=== PATIENT | male | born 1975 | race Caucasian/White ===

== ENCOUNTER 2018-11-15 12:37 | Inpatient (IN) | payer OTHER ==
[~2018-11-15] VITALS: Ht 180.3 cm; Wt 110.7 kg
[2018-11-15 15:00] VITALS: BP 118/76
[2018-11-15] MEDS ORDERED: OMEP20CA10 PO (16:47)
[2018-11-15] MEDS ORDERED: ATOR40TA59 PO (16:47)
[2018-11-15] MEDS ORDERED: CLIN150C14 PO (16:47)
[2018-11-15] MEDS ORDERED: SULF1TAB24 PO (16:47)
[2018-11-15] MEDS ORDERED: KETO10TA PO (16:47)
[2018-11-15] MEDS ORDERED: METF10007 PO (16:47)
[2018-11-15] MEDS ORDERED: LISI-130 PO (16:47)
[2018-11-15 16:58] LABS: BASO # 0.1 x10^3/uL (0.0-0.2); BASO % 1 % (0-3); EOS # 0.1 x10^3/uL (0.0-0.7); EOS % 1 % (0-3); HEMATOCRIT 37.4 % (39.0-53.0); HEMOGLOBIN 12.7 g/dL (13.0-17.5); LYMPH # 1.5 x10^3/uL (1.0-4.8); LYMPH % 21 % (24-48); MEAN CORPUSCULAR HEMOGLOBIN 29 pg (25-35); MEAN CORPUSCULAR HGB CONC 34 g/dL (31-37); MEAN CORPUSCULAR VOLUME 84 fL (79-100); MONO # 0.6 x10^3/uL (0.0-1.1); MONO % 9 % (0-9); NEUT # 4.8 x10^3uL (1.8-7.7); NEUT % 68 % (31-73); PLATELET COUNT 192 x10^3/uL (140-400); RED BLOOD COUNT 4.45 x10^6/uL (4.30-5.70); RED CELL DISTRIBUTION WIDTH 14.1 % (11.5-14.5)
[2018-11-15] MEDS ORDERED: VANCOMYCIN 2 GM in IV NORMAL SALINE 500ML BAG 500 ML IV ONE (17:30)
[2018-11-15] MEDS: PIPERACILLIN/TAZOBACTAM 3.375 GM in IV NORMAL SALINE 50ML 50 ML IV SCH ×2 (18:30→23:02)
[2018-11-15] MEDS: IV NORMAL SALINE 1000ML BAG 1,000 ML IV SCH (18:30)
[2018-11-15] MEDS ORDERED: SEMA0.25 SQ (18:51)
[2018-11-15] MEDS ORDERED: DAPA10TA PO (18:51)
[2018-11-15 19:35] VITALS: BP 98/65
[2018-11-15 19:40] LABS: ALBUMIN 3.4 g/dL (3.4-5.0); ALBUMIN/GLOBULIN RATIO 0.9 (1.0-1.7); C-REACTIVE PROTEIN 35.6 mg/L (0-3.3); CALCIUM 9.5 mg/dL (8.5-10.1); CREATININE 1.3 mg/dL (0.7-1.3); GFR 60.2; POTASSIUM 4.8 mmol/L (3.5-5.1); TOTAL BILIRUBIN 0.2 mg/dL (0.2-1.0); TOTAL PROTEIN 7.3 g/dL (6.4-8.2)
[2018-11-15] MEDS: VANCOMYCIN PER PHARMACY MC PRN (19:48)
--- NOTE | 2018-11-15 19:49 | NUR ---
Pharmacy Vancomycin Dosing Note S:Consulted to monitor and dose vancomycin started 11/15/18. O:SHASTA NAVARRO is a 43 year old M with Cellulitis . Height: 5 feet, 11 inches Weight: 111.534943 kg [place] Body Weight: 75.30 Adjusted Body Weight: 89.58 Dosing Weight: Actual Other Antibiotics: ZOSYN LABS: Last BUN: 22 Last Creatinine: 1.3 Creatinine Clearance: 93 mL/min Last WBC: 7.0 Last Procalcitonin: Tmax (past 24 hours): 97.8 Microbiology: I/O: Drug Levels: Last level: on at Last dose given at Vancomycin Dosing: Loading Dose: 2000 mg x1 Dosing Weight: Actual Target Trough: 10-20 A: Based on: WEIGHT AND RENAL FUNCTION, 2GM VANCOMYCIN IV BOLUS GIVEN, P: 1. Begin Vancomycin 1750 mg IV q12h 11/16 2. Follow up Trough level on 11/17/18 at 0630 3. Pharmacy will continue to monitor, follow and adjust therapy as needed. WILLIE LIZAMA [facility], 11/15/18 1949
[2018-11-15] MEDS: LACTOBACILLUS RHAMNOSUS GG 1 CAPSULE. PO SCH (20:09)
[2018-11-15 23:09] VITALS: BP 108/69
[2018-11-16 03:40] VITALS: BP 91/54
[2018-11-16] MEDS: IV NORMAL SALINE 1000ML BAG 1,000 ML IV SCH (05:05)
[2018-11-16] MEDS: PIPERACILLIN/TAZOBACTAM 3.375 GM in IV NORMAL SALINE 50ML 50 ML IV SCH ×4 (05:23→23:55)
[2018-11-16] MEDS: VANCOMYCIN 1.75 GM in IV NORMAL SALINE 500ML BAG 500 ML IV SCH ×2 (06:11→18:40)
[2018-11-16 07:00] VITALS: BP 117/70
--- NOTE | 2018-11-16 08:59 | PDOC ---
Provider Note Provider Note [id number] STEVE VALDERRAMA MD Nov 16, 2018 08:58
[2018-11-16] MEDS: NON FORMULARY ITEM (Dapagliflozin Propanediol (Farxiga) 10 MG) PO SCH (09:00)
[2018-11-16] MEDS: LACTOBACILLUS RHAMNOSUS GG 1 CAPSULE. PO SCH ×2 (09:16→19:20)
[2018-11-16] MEDS: metFORMIN 500 MG TABLET PO SCH ×2 (09:16→17:39)
[2018-11-16] MEDS: PANTOPRAZOLE 40 MG TABLET.DR. PO SCH (09:16)
--- NOTE | 2018-11-16 09:47 | HP ---
ADMIT DATE: 11/15/2018 CHIEF COMPLAINT: Infected foot. HISTORY OF PRESENT ILLNESS: A 43-year-old white male was seen in the office by Dr. Gamez on the day of admission with progressively worsening infection of the right foot. This began about 3 weeks prior to admission, when he peeled off some skin off his right toe that caused bleeding and subsequently some infection. He took a week of Bactrim, ending about 2 weeks ago and was clinically better. He went to [place] and about 5 days ago, he developed fever, nausea, vomiting and increasing severe pain in the right great toe. Cultures were done at the ER in [facility], results pending of those and he was given IV medications of unknown type and then prescription for Bactrim and clindamycin. He did not fill those prescriptions for about 24 hours and then started them 2 days prior to admission, without much improvement. His toe feels better since he has been on clindamycin and Zosyn here in the hospital. He has had no further fever, chills, nausea or vomiting. His last A1c was about 6 weeks ago and was 9.[address] Gamez added Ozempic, which he feels like he has been responding to so far. MEDICATIONS: Include lisinopril, omeprazole and Lipitor. ALLERGIES: He has no allergies known. IMMUNIZATIONS: Tetanus status, uncertain. SOCIAL HISTORY: Nonsmoker, nondrinker, physically active, single. FAMILY HISTORY: Unremarkable. REVIEW OF SYSTEMS: No other known complaints. PHYSICAL EXAMINATION: ENT: All within normal limits. NECK: No masses, nodes or bruits. LUNGS: Clear. CARDIOVASCULAR: Regular rate. No murmur, tachycardia. ABDOMEN: Soft, benign and nontender. EXTREMITIES: He has excellent pedal and radial pulses in both feet. The dorsal distal right foot has inflammation, tenderness and mild maceration between the great toe and toes 2 and 3. There is no streaking or lymphadenopathy noted. The right great toe is peeling, but looks clinically better and there are no open draining wounds. The ankle is normal. NEUROLOGIC: Physiologic. No obvious neuropathy noted. ASSESSMENT: Progressive cellulitis of the right dorsal foot, despite clindamycin and Bactrim as an outpatient. Bacteriologic etiology not known yet. Suspect methicillin-resistant Staphylococcus aureus and most likely possibly some gram negatives. Diabetes is not ideally controlled, but the addition of Ozempic has helped him. Good neurovascular status. PLAN: Continue vancomycin and Zosyn, pending results of outpatient culture. X-ray of the toe to look at the great toe primarily, but does not appear to show evidence of osteomyelitis at this time. STEVE VALDERRAMA MD DR: MIKHAIL/landy JOB#: [id number] / [id number]
[2018-11-16 11:00] VITALS: BP 114/71
--- NOTE | 2018-11-16 11:38 | PDOC ---
Infectious Disease Note Vital Sign Vital Signs Vital Signs Date Time Temp Pulse Resp B/P (MAP) Pulse Ox O2 Delivery O2 Flow Rate FiO2 11/16/18 11:00 98.4 88 16 114/71 (85) 98 Room Air 98.4 Labs Lab Laboratory Tests Test 11/15/18 16:40 11/15/18 17:01 11/15/18 20:16 11/16/18 07:45 White Blood Count 7.0 x10^3/uL (4.0-11.0) Red Blood Count 4.45 x10^6/uL (4.30-5.70) Hemoglobin 12.7 g/dL (13.0-17.5) Hematocrit 37.4 % (39.0-53.0) Mean Corpuscular Volume 84 fL (79-100) Mean Corpuscular Hemoglobin 29 pg (25-35) Mean Corpuscular Hemoglobin Concent 34 g/dL (31-37) Red Cell Distribution Width 14.1 % (11.5-14.5) Platelet Count 192 x10^3/uL (140-400) Neutrophils (%) (Auto) 68 % (31-73) Lymphocytes (%) (Auto) 21 % (24-48) Monocytes (%) (Auto) 9 % (0-9) Eosinophils (%) (Auto) 1 % (0-3) Basophils (%) (Auto) 1 % (0-3) Neutrophils # (Auto) 4.8 x10^3uL (1.8-7.7) Lymphocytes # (Auto) 1.5 x10^3/uL (1.0-4.8) Monocytes # (Auto) 0.6 x10^3/uL (0.0-1.1) Eosinophils # (Auto) 0.1 x10^3/uL (0.0-0.7) Basophils # (Auto) 0.1 x10^3/uL (0.0-0.2) Erythrocyte Sedimentation Rate 60 (0-15) Sodium Level 138 mmol/L (136-145) Potassium Level 4.8 mmol/L (3.5-5.1) Chloride Level 101 mmol/L (98-107) Carbon Dioxide Level 23 mmol/L (21-32) Anion Gap 14 (6-14) Blood Urea Nitrogen 22 mg/dL (8-26) Creatinine 1.3 mg/dL (0.7-1.3) Estimated GFR (Cockcroft-Gault) 60.2 BUN/Creatinine Ratio 17 (6-20) Glucose Level 233 mg/dL (70-99) Calcium Level 9.5 mg/dL (8.5-10.1) Total Bilirubin 0.2 mg/dL (0.2-1.0) Aspartate Amino Transf (AST/SGOT) 33 U/L (15-37) Alanine Aminotransferase (ALT/SGPT) 44 U/L (16-63) Alkaline Phosphatase 70 U/L (46-116) C-Reactive Protein, Quantitative 35.6 mg/L (0-3.3) Total Protein 7.3 g/dL (6.4-8.2) Albumin 3.4 g/dL (3.4-5.0) Albumin/Globulin Ratio 0.9 (1.0-1.7) Glucose (Fingerstick) 209 mg/dL (70-99) 146 mg/dL (70-99) 134 mg/dL (70-99) Objective Assessment Rt foot cellulitis Rt big toe callous DM HLD Plan Plan of Care agree with vern and tico supportive care check culture results EDMAR LOREDO MD Nov 16, 2018 11:38
--- NOTE | 2018-11-16 12:06 | RAD ---
EXAM: Right foot, 3 views. HISTORY: Right great toe infection. COMPARISON: None. FINDINGS: 3 views of the right foot are obtained. There is no acute fracture, dislocation or subluxation. There is no radiographic evidence of osteomyelitis. No soft tissue foreign body is seen. IMPRESSION: No acute osseous finding. Electronically signed by: Bianca Maddox MD (11/16/2018 12:03 PM) [facility]
[2018-11-16 12:40] LABS: CREATININE 1.1 mg/dL (0.7-1.3); GFR 73.1
--- NOTE | 2018-11-16 14:22 | NUR ---
Wound Care: Consult to eval and treat for R great toe DFU and cellulitis. Consents obtained to perform bedside debridement of callus. Callus removed and wound pictured and measured per protocol (see detailed assessment). Cleansed and applied Epiona to wound bed, covered with corn pad, contact layer and telfa. Plan to follow up 11/24. Communicated wound care orders with Man BUTLER. Dr. Sharma recommending Half shoe from [employer] Addendum: 11/16/18 at 1557 by LYLY DOBBINS RN RLE ZAHRAA: 1.14
[2018-11-16 15:00] VITALS: BP 105/57
--- NOTE | 2018-11-16 15:11 | PDOC2 ---
CONSULT Date of Consult Date of Consult DATE: 11/16/18 TIME: 15:07 Reason for Consult Reason for Consult: Right foot infection Referring Physician Referring Physician: Dr. Chiu Identification/Chief Complaint Chief Complaint Worsening right foot cellulitis and diabetic patient Source Source: Chart review, Patient History of Present Illness Reason for Visit: This is a 43-year-old patient recently admitted to the hospital for worsening diabetic ulcer to the right forefoot. Duration of the ulceration appears to have been roughly 1 week. He demonstrated initial good response to oral antibiotics but most recent increased redness and swelling was not responsive to dual oral antibiotic therapy. He was subsequently admitted for aggressive IV antibiotic therapy. Patient does not report significant history of diabetic ulcerations in the past. He does not wear any type of special or custom diabetic shoe wear. He wears shoes without socks for the most part. He is aware of some decreased sensation in bilateral lower extremities. At this time he reports much improved redness and swelling. Past Medical History Cardiovascular: HTN Endocrine: Diabetes Social History No ALCOHOL: rare Drugs: None Domestic Violence: Neg Current Medications Current Medications Current Medications Vancomycin HCl (Vanco Per Pharmacy) 1 each PRN DAILY PRN MC SEE COMMENTS Last administered on 11/15/18at 19:48; Start 11/15/18 at 15:45 Piperacillin Sod/ Tazobactam Sod 3.375 gm/Sodium Chloride 50 ml @ 100 mls/hr Q6HRS IV Last administered on 11/16/18at 12:20; Start 11/15/18 at 16:00 Sodium Chloride 1,000 ml @ 75 mls/hr [id number] IV Last administered on at 18:30; Start 11/15/18 at 15:45; Stop 11/16/18 at 09:02; Status DC Lactobacillus Rhamnosus (Culturelle) 1 cap BID PO Last administered on at 09:16; Start 11/15/18 at 21:00 Vancomycin HCl 2 gm/Sodium Chloride 500 ml @ 250 mls/hr 1X ONCE IV Last administered on 11/15/18at 19:10; Start 11/15/18 at 17:30; Stop 11/15/18 at 19:29 ; Status DC Vancomycin HCl 1.75 gm/Sodium Chloride 500 ml @ 250 mls/hr Q12H IV Last administered on 11/16/18at 06:11; Start 11/16/18 at 07:00 Vancomycin HCl (Vancomycin Trough Level) 1 each 1X ONCE MC ; Start 11/17/18 at 06:30; Stop 11/17/18 at 06:31 Atorvastatin Calcium (Lipitor) 40 mg QHS PO ; Start 11/16/18 at 21:00 Non-Formulary Medication (Dapagliflozin Propanediol (Farxiga)) 10 mg DAILY PO ; Start 11/16/18 at 09:00; Status UNV Metformin HCl (Glucophage) 1,000 mg BIDWMEALS PO Last administered on at 09:16; Start 11/16/18 at 09:00 Pantoprazole Sodium (Protonix) 40 mg DAILYAC PO Last administered on 11/16/18at 09:16; Start 11/16/18 at 11:30 Active Scripts Active Reported Farxiga (Dapagliflozin Propanediol) 10 Mg Tablet 10 Mg PO DAILY Ozempic (Semaglutide) 0.25 Mg/0.2 Ml Pen.injctr Unknown Dose SQ WEEKLY Lisinopril 40 Mg Tablet 1 Tab PO DAILY Atorvastatin Calcium 40 Mg Tablet 1 Tab PO DAILY Omeprazole 20 Mg Capsule.dr 1 Cap PO DAILY Metformin Hcl 1,000 Mg Tablet 1,000 Mg PO BIDWMEALS Clindamycin Hcl 150 Mg Capsule 3 Cap PO TID Bactrim Ds Tablet (Sulfamethoxazole/Trimethoprim) 1 Each Tablet 1 Tab PO BID Ketorolac Tromethamine 10 Mg Tablet 1 Tab PO TID PRN Allergies Allergies: Coded Allergies: No Known Drug Allergies (Unverified , 07/30/14) ROS Review of System Negative except as reported below Physical Exam General: Alert, Oriented X3, Cooperative, No acute distress HEENT: Atraumatic, PERRLA, EOMI, Mucous membr. moist/pink Lungs: Clear to auscultation, Normal air movement Heart: Regular rate, No murmurs, Other (Quant of flow on the right was 1.14) Abdomen: Soft, No tenderness Extremities: No clubbing, No cyanosis, No edema, Normal pulses Skin: Other (diabetic Cavazos 1 ulceration of the right great toe with evidence of fat exposure measuring 0.3 cm x 0.4 cm x 0.2 cm. There is swelling and modest induration at the first interdigital space dorsal aspect of the right forefoot as well. The plantar surface ulcer does not probe to bone or a worrisome depth at this time. Significant swelling in the great toe is not particularly prominent.) Neuro: Normal speech, Cranial nerves 3-12 NL Psych/Mental Status: Mental status NL, Mood NL MUSCULOSKELETAL: Not examined Vitals VITALS Vital Signs Date Time Temp Pulse Resp B/P (MAP) Pulse Ox O2 Delivery O2 Flow Rate FiO2 11/16/18 11:00 98.4 88 16 114/71 (85) 98 Room Air 98.4 Labs Labs Elevated sedimentation rate noted Laboratory Tests Test 11/15/18 16:40 11/15/18 17:01 11/15/18 20:16 11/16/18 07:45 White Blood Count 7.0 x10^3/uL (4.0-11.0) Red Blood Count 4.45 x10^6/uL (4.30-5.70) Hemoglobin 12.7 g/dL (13.0-17.5) Hematocrit 37.4 % (39.0-53.0) Mean Corpuscular Volume 84 fL (79-100) Mean Corpuscular Hemoglobin 29 pg (25-35) Mean Corpuscular Hemoglobin Concent 34 g/dL (31-37) Red Cell Distribution Width 14.1 % (11.5-14.5) Platelet Count 192 x10^3/uL (140-400) Neutrophils (%) (Auto) 68 % (31-73) Lymphocytes (%) (Auto) 21 % (24-48) Monocytes (%) (Auto) 9 % (0-9) Eosinophils (%) (Auto) 1 % (0-3) Basophils (%) (Auto) 1 % (0-3) Neutrophils # (Auto) 4.8 x10^3uL (1.8-7.7) Lymphocytes # (Auto) 1.5 x10^3/uL (1.0-4.8) Monocytes # (Auto) 0.6 x10^3/uL (0.0-1.1) Eosinophils # (Auto) 0.1 x10^3/uL (0.0-0.7) Basophils # (Auto) 0.1 x10^3/uL (0.0-0.2) Erythrocyte Sedimentation Rate 60 (0-15) Sodium Level 138 mmol/L (136-145) Potassium Level 4.8 mmol/L (3.5-5.1) Chloride Level 101 mmol/L (98-107) Carbon Dioxide Level 23 mmol/L (21-32) Anion Gap 14 (6-14) Blood Urea Nitrogen 22 mg/dL (8-26) Creatinine 1.3 mg/dL (0.7-1.3) Estimated GFR (Cockcroft-Gault) 60.2 BUN/Creatinine Ratio 17 (6-20) Glucose Level 233 mg/dL (70-99) Calcium Level 9.5 mg/dL (8.5-10.1) Total Bilirubin 0.2 mg/dL (0.2-1.0) Aspartate Amino Transf (AST/SGOT) 33 U/L (15-37) Alanine Aminotransferase (ALT/SGPT) 44 U/L (16-63) Alkaline Phosphatase 70 U/L (46-116) C-Reactive Protein, Quantitative 35.6 mg/L (0-3.3) Total Protein 7.3 g/dL (6.4-8.2) Albumin 3.4 g/dL (3.4-5.0) Albumin/Globulin Ratio 0.9 (1.0-1.7) Glucose (Fingerstick) 209 mg/dL (70-99) 146 mg/dL (70-99) 134 mg/dL (70-99) Test 11/16/18 11:53 11/16/18 12:00 Glucose (Fingerstick) 144 mg/dL (70-99) Creatinine 1.1 mg/dL (0.7-1.3) Estimated GFR (Cockcroft-Gault) 73.1 Laboratory Tests Test 11/15/18 16:40 11/15/18 17:01 11/15/18 20:16 11/16/18 07:45 White Blood Count 7.0 x10^3/uL (4.0-11.0) Red Blood Count 4.45 x10^6/uL (4.30-5.70) Hemoglobin 12.7 g/dL (13.0-17.5) Hematocrit 37.4 % (39.0-53.0) Mean Corpuscular Volume 84 fL (79-100) Mean Corpuscular Hemoglobin 29 pg (25-35) Mean Corpuscular Hemoglobin Concent 34 g/dL (31-37) Red Cell Distribution Width 14.1 % (11.5-14.5) Platelet Count 192 x10^3/uL (140-400) Neutrophils (%) (Auto) 68 % (31-73) Lymphocytes (%) (Auto) 21 % (24-48) Monocytes (%) (Auto) 9 % (0-9) Eosinophils (%) (Auto) 1 % (0-3) Basophils (%) (Auto) 1 % (0-3) Neutrophils # (Auto) 4.8 x10^3uL (1.8-7.7) Lymphocytes # (Auto) 1.5 x10^3/uL (1.0-4.8) Monocytes # (Auto) 0.6 x10^3/uL (0.0-1.1) Eosinophils # (Auto) 0.1 x10^3/uL (0.0-0.7) Basophils # (Auto) 0.1 x10^3/uL (0.0-0.2) Erythrocyte Sedimentation Rate 60 (0-15) Sodium Level 138 mmol/L (136-145) Potassium Level 4.8 mmol/L (3.5-5.1) Chloride Level 101 mmol/L (98-107) Carbon Dioxide Level 23 mmol/L (21-32) Anion Gap 14 (6-14) Blood Urea Nitrogen 22 mg/dL (8-26) Creatinine 1.3 mg/dL (0.7-1.3) Estimated GFR (Cockcroft-Gault) 60.2 BUN/Creatinine Ratio 17 (6-20) Glucose Level 233 mg/dL (70-99) Calcium Level 9.5 mg/dL (8.5-10.1) Total Bilirubin 0.2 mg/dL (0.2-1.0) Aspartate Amino Transf (AST/SGOT) 33 U/L (15-37) Alanine Aminotransferase (ALT/SGPT) 44 U/L (16-63) Alkaline Phosphatase 70 U/L (46-116) C-Reactive Protein, Quantitative 35.6 mg/L (0-3.3) Total Protein 7.3 g/dL (6.4-8.2) Albumin 3.4 g/dL (3.4-5.0) Albumin/Globulin Ratio 0.9 (1.0-1.7) Glucose (Fingerstick) 209 mg/dL (70-99) 146 mg/dL (70-99) 134 mg/dL (70-99) Test 11/16/18 11:53 11/16/18 12:00 Glucose (Fingerstick) 144 mg/dL (70-99) Creatinine 1.1 mg/dL (0.7-1.3) Estimated GFR (Cockcroft-Gault) 73.1 Images Images Plain film x-ray unremarkable for bony involvement Assessment/Plan Assessment/Plan Diabetic Cavazos 1 ulceration of the right forefoot with evidence of fat layer exposure and prominent distal extremity cellulitis Doubt vascular involvement. Orders written for appropriate dressings. Infectious disease managing cellulitic component. We discussed offloading and follow-up if agreeable to primary care. Anticipate offloading will be critical and resolution of this ulcer. He was provided felt and we will anticipate placement in a half shoe. Thank you for allowing us to participate in your patient's care EDILBERTO BULLOCK DO Nov 16, 2018 15:11
[2018-11-16] MEDS: VANCOMYCIN PER PHARMACY MC PRN (15:56)
[2018-11-16] MEDS: ACETAMINOPHEN 325 MG TABLET. PO PRN (19:20)
[2018-11-16] MEDS: ATORVASTATIN CALCIUM 40 MG TABLET. PO SCH (19:20)
[2018-11-16 19:51] VITALS: BP 117/71
[2018-11-16 23:40] VITALS: BP 91/60
[2018-11-17 00:26] VITALS: BP 91/60
--- NOTE | 2018-11-17 00:36 | CONS ---
DATE OF CONSULTATION: 11/16/2018 REQUESTING PHYSICIAN: Dr. Chiu REASON FOR CONSULTATION: Diabetic foot infection. HISTORY OF PRESENT ILLNESS: This is a 43-year-old gentleman with a history of diabetes with last hemoglobin A1c around 9. The patient had developed about 3 weeks or so ago, there was a callus on the big toe, which was peeled off of the skin and subsequently developed infection. The patient was given Bactrim and he said it actually improved first time and subsequently he went for a business trip to [place] where he got worse. The patient was seen in the ER there. The patient was put back on Bactrim and clindamycin and he was not getting better, hence he is admitted for further management. The patient has been started on vancomycin and Zosyn and already is looking better, he says, compared to yesterday. The patient denies any fever, denies any chills. Denies any nausea, vomiting, diarrhea now. Denies any chest pain, shortness of breath, abdominal pain, urinary symptoms or bowel symptoms. PAST MEDICAL HISTORY: Positive for diabetes mellitus, hyperlipidemia, gastroesophageal reflux disease, has had knee reconstructive surgery done in the past. SOCIAL HISTORY: Negative for smoking, alcohol use or drug use. ALLERGIES: No known drug allergies. CURRENT MEDICATIONS: Reviewed. The patient is on vancomycin and Zosyn. REVIEW OF SYSTEMS: As per HPI, all other systems reviewed and are negative. PHYSICAL EXAMINATION: GENERAL: Alert, oriented gentleman, not in distress. VITAL SIGNS: Stable, afebrile. HEENT: NAD. NECK: Supple, no JVP, no lymphadenopathy. LUNGS: Clear. HEART: S1, S2 regular. ABDOMEN: Benign. EXTREMITIES: No edema or cyanosis. SKIN: Unremarkable except right foot. The patient does have a dry flaky skin on the right big toe callus. On the plantar surface, there is redness of the toe as well as spreading on to the foot with a slight blistering at the base of the first and second toe. There is no other deep skin breakdown. There is no other area of concern. He does have good dorsalis pedis palpable. NEUROLOGICAL: The patient is neurologically intact, alert, awake and appropriate. No focal neurologic deficit. LABORATORY DATA: White count is 7000, hemoglobin 12.7, platelets are normal. Sed rate is 60. BUN and creatinine are normal. His foot x-ray report is pending. My view is unremarkable. IMPRESSION: 1. Diabetic foot infection, probably started from the callus and the skin peel that he took it out, may have ill-fitting shoes causing the disproportionate amount of callus into the right big toe. 2. Diabetes. 3. Hyperlipidemia. RECOMMENDATIONS: Recommend continue vancomycin and Zosyn for the time being, will obtain the culture that was done in [facility] and soon to be able to switch over to oral for possible discharge. Blood sugar control discussed and the possible ill-fitting shoes discussed. Thank you very much, Dr. Chiu, for giving me the opportunity to participate in this patient's care. EDMAR LOREDO MD DR: EBONY/nts JOB#: [id number] / [id number]
[2018-11-17 03:30] VITALS: BP 98/57
[2018-11-17] MEDS: PIPERACILLIN/TAZOBACTAM 3.375 GM in IV NORMAL SALINE 50ML 50 ML IV SCH ×3 (06:07→17:43)
[2018-11-17 07:00] VITALS: BP 120/82
[2018-11-17 07:38] LABS: VANC TR 10.3 mcg/mL (10.0-20.0)
[2018-11-17] MEDS: VANCOMYCIN PER PHARMACY MC PRN (07:46)
--- NOTE | 2018-11-17 07:50 | NUR ---
Pharmacy Vancomycin Dosing Note S: Consulted to monitor and dose vancomycin started 11/15/18. O: MELANIESHASTA is a 43 year old M with Cellulitis Other Antibiotics: ZOSYN LABS: Last BUN: 22 Last Creatinine: 1.1 Creatinine Clearance: 93 mL/min Last WBC: 7.0 Last Platelets: Tmax (past 24 hours): 98.3 Microbiology: BLOOD: NGTD (AFTER 1 DAY) I/O: 1700/(6 VOIDS) Drug Levels: Last Trough level: 10.3 on 11/17/18 at 0635 Last dose given 11/16/18 at 1840 Vancomycin Dosing: Dosing Weight: Actual Target Trough: 10-20 A: Based on: trough P: 1. Continue Vancomycin 1750 mg IV q12h 2. Follow up Trough level on in 5-7 days 3. Pharmacy will continue to monitor, follow and adjust therapy as needed. Darline Palomino RPH, 11/17/18 [id number]
[2018-11-17] MEDS: PANTOPRAZOLE 40 MG TABLET.DR. PO SCH (08:21)
[2018-11-17] MEDS: VANCOMYCIN 1.75 GM in IV NORMAL SALINE 500ML BAG 500 ML IV SCH ×2 (08:21→18:30)
[2018-11-17] MEDS: LACTOBACILLUS RHAMNOSUS GG 1 CAPSULE. PO SCH ×2 (08:21→20:48)
[2018-11-17] MEDS: metFORMIN 500 MG TABLET PO SCH ×2 (08:22→17:42)
--- NOTE | 2018-11-17 08:38 | PDOC ---
Provider Note Provider Note afeb, redness mildly less- pain ok, xr ok- no results of op culture- cont vanc/ zosyn 1 more day likely STEVE VALDERRAMA MD Nov 17, 2018 08:38
[2018-11-17] MEDS: NON FORMULARY ITEM (Dapagliflozin Propanediol (Farxiga) 10 MG) PO SCH (09:00)
--- NOTE | 2018-11-17 11:18 | PDOC ---
Infectious Disease Note Subjective Subjective pt is feeling good ROS ROS no n/v/d/sob Vital Sign Vital Signs Vital Signs Date Time Temp Pulse Resp B/P (MAP) Pulse Ox O2 Delivery O2 Flow Rate FiO2 11/17/18 07:00 97.8 80 18 120/82 (95) 98 Room Air 97.8 Physical Exam PHYSICAL EXAM GENERAL: Alert, oriented gentleman, not in distress. VITAL SIGNS: Stable, afebrile. HEENT: NAD. NECK: Supple, no JVP, no lymphadenopathy. LUNGS: Clear. HEART: S1, S2 regular. ABDOMEN: Benign. EXTREMITIES: No edema or cyanosis. SKIN: Unremarkable except right foot. The patient does have a dry flaky skin on the right big toe callus. On the plantar surface, there is redness of the toe as well as spreading on to the foot with a slight blistering at the base of the first and second toe. There is no other deep skin breakdown. There is no other area of concern. He does have good dorsalis pedis palpable. NEUROLOGICAL: The patient is neurologically intact, alert, awake and appropriate. No focal neurologic deficit. Labs Lab Laboratory Tests Test 11/16/18 11:53 11/16/18 12:00 11/16/18 16:59 11/16/18 19:02 Glucose (Fingerstick) 144 mg/dL (70-99) 183 mg/dL (70-99) 149 mg/dL (70-99) Creatinine 1.1 mg/dL (0.7-1.3) Estimated GFR (Cockcroft-Gault) 73.1 Test 11/17/18 06:35 11/17/18 07:03 Vancomycin Level Trough 10.3 mcg/mL (10.0-20.0) Vancomycin Last Dose Date 11/16/18 Vancomycin Last Dose Time 1900 Glucose (Fingerstick) 153 mg/dL (70-99) Micro Microbiology 11/15/18 Blood Culture - Preliminary, Resulted NO GROWTH AFTER 1 DAY Objective Assessment Rt foot cellulitis Rt big toe callous DM HLD Plan Plan of Care agree with vanc and zosyn supportive care check culture results hopefully d/c tomorrow on po augmentin EDMAR LOREDO MD Nov 17, 2018 11:18
[2018-11-17] MEDS: ACETAMINOPHEN 325 MG TABLET. PO PRN (12:00)
--- NOTE | 2018-11-17 14:49 | NUR ---
SW following for discharge planning. Chart reviewed. Pt is from home with family and currently on room air. No discharge needs or recommendations noted at this time. SW will continue to follow for pending discharge needs.
[2018-11-17 19:10] VITALS: BP 128/90
[2018-11-17] MEDS: ATORVASTATIN CALCIUM 40 MG TABLET. PO SCH (20:49)
[2018-11-17 23:25] VITALS: BP 131/85
[2018-11-18] MEDS: PIPERACILLIN/TAZOBACTAM 3.375 GM in IV NORMAL SALINE 50ML 50 ML IV SCH ×2 (00:07→05:23)
[2018-11-18 05:08] LABS: GFR 81.6
[2018-11-18] MEDS: VANCOMYCIN 1.75 GM in IV NORMAL SALINE 500ML BAG 500 ML IV SCH (06:30)
[2018-11-18 07:05] VITALS: BP 121/88
[2018-11-18] MEDS: PANTOPRAZOLE 40 MG TABLET.DR. PO SCH (08:08)
[2018-11-18] MEDS: metFORMIN 500 MG TABLET PO SCH (08:09)
[2018-11-18] MEDS: LACTOBACILLUS RHAMNOSUS GG 1 CAPSULE. PO SCH (08:09)
--- NOTE | 2018-11-18 08:20 | DISCH ---
DISCHARGE INSTRUCTIONS Condition on Discharge Condition on Discharge: Stable Activity After Discharge Activity Instructions for Disc: No restrictions Diet after Discharge Diet after Discharge: Diabetic No Calorie Level Follow-Up Follow up with: dr erazo 5 d STEVE VALDERRAMA MD Nov 18, 2018 08:20
--- NOTE | 2018-11-18 08:23 | PDOC ---
Provider Note Provider Note [id number] STEVE VALDERRAMA MD Nov 18, 2018 08:23
[2018-11-18] MEDS: NON FORMULARY ITEM (Dapagliflozin Propanediol (Farxiga) 10 MG) PO SCH (09:00)
[2018-11-18] MEDS ORDERED: MULTIVITAMIN with MINERAL TABLET. PO SCH (09:00)
--- NOTE | 2018-11-18 10:38 | NUR ---
Patient had discharge orders, informed ID service, Dr. Galdamez at 1035. PO Clindamycin antibiotic changed to Augmentin 875mg 2x a day for 10 days.
--- NOTE | 2018-11-18 11:00 | PDOC ---
Infectious Disease Note Subjective Subjective pt is feeling good ROS ROS no n/v/d/sob Vital Sign Vital Signs Vital Signs Date Time Temp Pulse Resp B/P (MAP) Pulse Ox O2 Delivery O2 Flow Rate FiO2 11/18/18 08:00 Room Air 11/18/18 07:05 98.7 90 18 121/88 (99) 96 98.7 Physical Exam PHYSICAL EXAM GENERAL: Alert, oriented gentleman, not in distress. VITAL SIGNS: Stable, afebrile. HEENT: NAD. NECK: Supple, no JVP, no lymphadenopathy. LUNGS: Clear. HEART: S1, S2 regular. ABDOMEN: Benign. EXTREMITIES: No edema or cyanosis. SKIN: Unremarkable except right foot. The patient does have a dry flaky skin on the right big toe callus. On the plantar surface, there is redness of the toe as well as spreading on to the foot with a slight blistering at the base of the first and second toe. There is no other deep skin breakdown. There is no other area of concern. He does have good dorsalis pedis palpable. NEUROLOGICAL: The patient is neurologically intact, alert, awake and appropriate. No focal neurologic deficit. Labs Lab Laboratory Tests Test 11/17/18 12:07 11/17/18 16:54 11/17/18 20:29 11/18/18 04:00 Glucose (Fingerstick) 137 mg/dL (70-99) 208 mg/dL (70-99) 149 mg/dL (70-99) Creatinine 1.0 mg/dL (0.7-1.3) Estimated GFR (Cockcroft-Gault) 81.6 Test 11/18/18 07:00 Glucose (Fingerstick) 150 mg/dL (70-99) Micro Microbiology 11/15/18 Blood Culture - Preliminary, Resulted NO GROWTH AFTER 1 DAY Objective Assessment Rt foot cellulitis Rt big toe callous DM HLD Plan Plan of Care culture per pt from [place] is MRSA and Group C strep I do not have paper copy ok to d/c on augmentin and bactrim///zyvox option discussed, pt does not want expensive drug yet if not better then he will do says f/u with me if needed in 7-10 days EDMAR LOREDO MD Nov 18, 2018 11:00
--- NOTE | 2018-11-18 11:29 | DS ---
DATE OF DISCHARGE: 11/18/2018 HOSPITAL SUMMARY: A 43-year-old white male with poorly controlled type 2 diabetes, came in with left foot cellulitis that did not improve with outpatient clindamycin and Bactrim. CBC, chemistry profile, and vancomycin levels were unremarkable. X-ray of the foot showed no sign of osteomyelitis. He was treated with IV vancomycin and Zosyn and clinically improved fairly quickly, and outpatient culture was found to show group C strep and MRSA and he will be managed as an outpatient at this point. Wound Care consult was done and debridement of the great toe nonviable skin and wound dressings and a boot placed to offload the bottom of the left great toe fissure where the initial one was present. FINAL DIAGNOSIS: Cellulitis of the left foot. OPERATIONS, PROCEDURES, COMPLICATIONS: None. CONSULTATIONS: Wound Care clinic. DISPOSITION: He will take clindamycin 300 mg 3 times a day, Bactrim-DS one twice a day for the next week. Office followup with Dr. Gamez in 5 days. He continues his diabetic meds including Ozempic, which is the new one, which has been helping his sugars be better since he had had less than ideal A1c as an outpatient. Multivitamins daily. Complete tobacco avoidance and offloading with a shoe. PROGNOSIS: Good. STEVE VALDERRAMA MD DR: MIKHAIL/nts JOB#: [id number] / [id number]
[2018-11-18] MEDS ORDERED: AMOXICILLIN/K CLAV 875/125MG TABLET. PO SCH (11:30)
--- NOTE | 2018-11-18 11:37 | NUR ---
Discharge Note: SHASTA NAVARRO [facility] Discharge instructions and discharge home medications reviewed with patient and a copy given. All questions have been answered and understanding verbalized. The following instructions and handouts were given: Diabetic foot care easy to read Cellulitis handout Augmentin prescription Ff up with PCP in 1 week Discontinued lines and drains: peripheral catheter intact, patient tolerated removal, no complications noted. Patient refused photo of foot ulcer prior to discharge. Patient discharged to home with self-care accompanied by family member at 1130.
== END 2018-11-18 11:50 | disposition home or self-care (01) | DRG 603 ==
LOC: 6 SOUTH 15:22
PROVIDERS: ADMIT Family Medicine; ATTEND Family Medicine
PROC: 0HBNXZZ Excision of Left Foot Skin, External Approach (ICD-10-PCS; principal; 2018-11-16)
DX: L03.116 Cellulitis of left lower limb (principal); L03.031 Cellulitis of right toe; L03.115 Cellulitis of right lower limb; E78.5 Hyperlipidemia, unspecified; I10 Essential (primary) hypertension; K21.9 Gastro-esophageal reflux disease without esophagitis; E11.621 Type 2 diabetes mellitus with foot ulcer; L97.519 Non-pressure chronic ulcer of other part of right foot with unspecified severity
CPT/HCPCS: 36415; 73630; 80053; 80202; 82565; 82962; 85025; 85651; 86140; 87040; J2543; J3370; J7030; J7040

== ENCOUNTER → 2018-11-23 | Outpatient (CLI) | payer OTHER ==
[2018-11-18 07:05] VITALS: BP 121/88
[~2018-11-23] MED LIST: ATOR40TA59 PO; CLIN150C14 PO; DAPA10TA PO; KETO10TA PO; LISI-130 PO; METF10007 PO; OMEP20CA10 PO; SEMA0.25 SQ; SULF1TAB24 PO
== END | disposition home or self-care (01) ==
LOC: PMGWOUND 07:58
PROVIDERS: ATTEND Emergency Medicine Undersea and Hyperbaric Medicine
DX: E11.621 Type 2 diabetes mellitus with foot ulcer (principal); L97.511 Non-pressure chronic ulcer of other part of right foot limited to breakdown of skin; L84 Corns and callosities; E78.5 Hyperlipidemia, unspecified; I10 Essential (primary) hypertension; E78.00 Pure hypercholesterolemia, unspecified; K21.9 Gastro-esophageal reflux disease without esophagitis
CPT/HCPCS: 99213; G0463